=== PATIENT | male | born 1970 ===

== ENCOUNTER 2017-09-24 07:20 | Outpatient (CLI) | payer OTHER | END 2017-09-24 17:00 | disposition home or self-care (01) | LOC: MRI 07:20 | DX: C62.92 Malignant neoplasm of left testis, unspecified whether descended or undescended (principal) | CPT/HCPCS: 72195; 74181 ==

== ENCOUNTER 2018-07-28 07:29 | Outpatient (CLI) | payer OTHER | END 2018-07-28 07:36 | disposition home or self-care (01) | LOC: MRI 07:29 | DX: C62.12 Malignant neoplasm of descended left testis (principal) | CPT/HCPCS: 72195; 74181 ==

== ENCOUNTER 2019-03-24 11:06 | Outpatient (CLI) | payer OTHER | END 2019-03-24 15:00 | disposition home or self-care (01) | LOC: LAB 11:06 | DX: C62.12 Malignant neoplasm of descended left testis (principal); N20.0 Calculus of kidney ==

== ENCOUNTER 2019-04-10 07:27 | Outpatient (CLI) | payer OTHER | END 2019-04-10 07:36 | disposition home or self-care (01) | LOC: TOM 07:27 | DX: C62.12 Malignant neoplasm of descended left testis (principal) ==

== ENCOUNTER → 2020-09-06 | Outpatient (CLI) | payer OTHER | END | disposition home or self-care (01) | LOC: TOM 08:31 | PROVIDERS: ATTEND Urology | DX: C62.12 Malignant neoplasm of descended left testis (principal); R31.29 Other microscopic hematuria ==